=== PATIENT | female | born 1985 | race American Indian/Alaskan Native ===

== ENCOUNTER 2017-04-25 05:48 | Emergency (ER) | payer BC ==
[2017-04-25 06:49] VITALS: BP 131/78
--- NOTE | 2017-04-25 08:58 | Emergency Department Report ---
ED N/V/D HPI - General Chief complaint: Nausea/Vomiting/Diarrhea Stated complaint: NAUSEA,VOMITING Time Seen by Provider: 04/25/17 08:26 Source: patient Mode of arrival: Ambulatory Limitations: No Limitations - History of Present Illness Initial comments: 31-year-old female past medical history diabetes on metformin presents with episode of nausea and vomiting this morning. Denies any current fevers chills nausea or abdominal pain dysuria chest pain palpitations increased urinary frequency. Patient states she is somewhat suspicious that she ate pizza yesterday that may have made her sick and reports that one of the person who ate this pizza also had some GI upset overnight. Patient denies any current diarrhea or bloody diarrhea. Patient states that GI symptoms have subsided and that she feels somewhat better. Denies any recent travel or antibiotic use. MD complaint: nausea, vomiting -: This morning Description of Vomiting: food contents Associated Abdominal Pain: No Radiation: none Severity: mild Improves with: none Worsens with: none Context: possible food poisoning Associated Symptoms: denies other symptoms - Related Data Previous Rx's Medication Instructions Recorded Last Taken Type Bismuth Subsalicylate 10 mg PO QID PRN #1 bottle 04/25/17 Unknown Rx [Pepto-Bismol] Ondansetron [Zofran Odt] 4 mg PO Q8H PRN #10 tab.rapdis 04/25/17 Unknown Rx Allergies Allergy/AdvReac Type Severity Reaction Status Date / Time Penicillins Allergy Hives Verified 04/25/17 07:48 ED Review of Systems ROS: Stated complaint: NAUSEA,VOMITING Other details as noted in HPI Constitutional: denies: chills, fever Eyes: denies: eye pain, eye discharge, vision change ENT: denies: ear pain, throat pain Respiratory: denies: cough, shortness of breath, wheezing Cardiovascular: denies: chest pain, palpitations Endocrine: no symptoms reported Gastrointestinal: vomiting (1 episode of vomiting this morning). denies: abdominal pain, nausea, diarrhea Genitourinary: denies: urgency, dysuria, discharge Musculoskeletal: denies: back pain, joint swelling, arthralgia Skin: denies: rash, lesions Neurological: denies: headache, weakness, paresthesias Psychiatric: denies: anxiety, depression Hematological/Lymphatic: denies: easy bleeding, easy bruising ED Past Medical Hx - Past Medical History Previous Medical History?: Yes Hx Diabetes: Yes - Surgical History Past Surgical History?: Yes Additional Surgical History: Gastric sleeve - Social History Smoking Status: Never Smoker Substance Use Type: Alcohol - Medications Home Medications: Home Medications Medication Instructions Recorded Confirmed Last Taken Type Bismuth Subsalicylate 10 mg PO QID PRN #1 bottle 04/25/17 Unknown Rx [Pepto-Bismol] Ondansetron [Zofran Odt] 4 mg PO Q8H PRN #10 tab.rapdis 04/25/17 Unknown Rx ED Physical Exam - General Limitations: No Limitations General appearance: alert, in no apparent distress - Head Head exam: Present: atraumatic, normocephalic - Eye Eye exam: Present: normal appearance, PERRL, EOMI - ENT ENT exam: Present: mucous membranes moist - Neck Neck exam: Present: normal inspection - Respiratory Respiratory exam: Present: normal lung sounds bilaterally. Absent: respiratory distress - Cardiovascular Cardiovascular Exam: Present: regular rate, normal rhythm. Absent: systolic murmur, diastolic murmur, rubs, gallop - GI/Abdominal GI/Abdominal exam: Present: soft (abdomen soft nontender nondistended four quadrants), normal bowel sounds - Extremities Exam Extremities exam: Present: normal inspection - Back Exam Back exam: Present: normal inspection - Neurological Exam Neurological exam: Present: alert, oriented X3, CN II-XII intact, normal gait - Psychiatric Psychiatric exam: Present: normal affect, normal mood - Skin Skin exam: Present: warm, dry, intact, normal color. Absent: rash ED Course Vital Signs 04/25/17 04/25/17 06:41 07:45 Temperature 98.5 F 98.5 F Pulse Rate 70 75 Respiratory 18 16 Rate Blood Pressure 131/78 131/78 O2 Sat by Pulse 99 99 Oximetry ED Medical Decision Making - Lab Data Result diagrams: 04/25/17 09:35 04/25/17 09:35 - Medical Decision Making A/P: Possible food poisoning, gastroenteritis 1-labs unremarkable, UA unremarkable 2-patient is asymptomatic at time of discharge 3-Zofran when necessary, Pepto-Bismol when necessary, Pepcid when necessary. I advised patient to remain well-hydrated 4- advised patient to return to the ED for any inability to tolerate by mouth persistent nausea and vomiting fever and chills bloody vomitus or diarrhea, severe abdominal pain. Patient stated she understood my instructions Critical care attestation.: If time is entered above; I have spent that time in minutes in the direct care of this critically ill patient, excluding procedure time. ED Disposition Clinical Impression: Nausea and vomiting Qualifiers: Vomiting type: unspecified Vomiting Intractability: non-intractable Qualified Code(s): R11.2 - Nausea with vomiting, unspecified Disposition: TO HOME OR SELFCARE Is pt being admited?: No Does the pt Need Aspirin: No Condition: Stable Instructions: Gastroenteritis (ED), Food Poisoning (ED), Acute Nausea and Vomiting (ED) Prescriptions: Bismuth Subsalicylate [Pepto-Bismol] 10 mg PO QID PRN #1 bottle PRN Reason: Indigestion Ondansetron [Zofran Odt] 4 mg PO Q8H PRN #10 tab.rapdis PRN Reason: Nausea Referrals: [facility] [Outside] - 3-5 Days [facility] [Outside] - 3-5 Days Forms: Work/School Release Form(ED) Time of Disposition: 10:21
[2017-04-25] MEDS ORDERED: ZOFRAN ODT PO ONE (09:14)
[2017-04-25 09:32] LABS: Bilirubin,Urine NEG (Negative); Blood,Urine NEG (Negative); Color,Urine Yellow (Yellow); Mucus,Urine FEW /HPF; Protein,Urine <15 mg/dL mg/dL (Negative); RBC,Urine < 1.0 /HPF (0.0-6.0)
[2017-04-25 09:53] LABS: Basophils % (Auto) 0.3 % (0.0-1.8); Hematocrit 36.4 % (30.3-42.9); Hemoglobin 11.8 gm/dl (10.1-14.3); Lymphocytes # (Auto) 1.5 K/mm3 (1.2-5.4); Lymphocytes % (Auto) 30.4 % (13.4-35.0); Mean Corpuscular HGB Conc 32 % (30-34); Mean Corpuscular Hemoglobin 28 pg (28-32); Mean Corpuscular Volume 88 fl (79-97); Monocytes # (Auto) 0.4 K/mm3 (0.0-0.8); Monocytes % (Auto) 7.2 % (0.0-7.3); Platelet Count 273 K/mm3 (140-440); Red Blood Count 4.16 M/mm3 (3.65-5.03); Red Cell Distribution Width 13.7 % (13.2-15.2)
[2017-04-25 10:12] LABS: Alanine Aminotransferase 10 units/L (7-56); Albumin 3.8 g/dL (3.9-5); BUN/Creatinine Ratio 12; Blood Urea Nitrogen 7 mg/dL (7-17); Calcium 8.8 mg/dL (8.4-10.2); Hemolysis Index 13; Lipase 21 units/L (13-60)
[2017-04-25 10:13] LABS: Bilirubin,Direct < 0.2 mg/dL (0-0.2)
[2017-04-25 10:42] LABS: HCG Qualitative,Urine Negative (Negative)
== END 2017-04-25 10:30 | disposition home or self-care (01) ==
LOC: ED 05:48
DX: R11.2 Nausea with vomiting, unspecified (principal); E11.9 Type 2 diabetes mellitus without complications; Z88.0 Allergy status to penicillin; Z79.84 Long term (current) use of oral hypoglycemic drugs
CPT/HCPCS: 36415; 80048; 80074; 81001; 81025; 82150; 83690; 85025; 99283; Q0162